=== PATIENT | male | born 2000 ===

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

== ENCOUNTER 2025-04-07 11:01 | Outpatient (REF) | payer OTHER, SELFPAY ==
[2025-04-10 13:01] LABS: Chlamydia Result Negative (Negative); GC Result Negative (Negative)
== END 2025-04-07 11:02 | disposition home or self-care (01) ==
LOC: NCHCN 11:01
PROVIDERS: Visit Provider Family Medicine
DX: Z11.3 Encounter for screening for infections with a predominantly sexual mode of transmission (principal)
CPT/HCPCS: 87491; 87591